=== PATIENT | male | born 1970 | race Two or more races ===

== ENCOUNTER 2018-05-24 07:13 | Day surgery (SDC) | payer OTHER ==
[2018-05-24] VITALS (9 sets, daily range): BP systolic 107–128; BP diastolic 56–88
[~2018-05-24] VITALS: Ht 180.3 cm; Wt 105.2 kg
[~2018-05-24 07:13] MED LIST: ceFAZolin 1gm IVPB IVPB ONE; celeBREX 200mg Cap **SURGERY PATIENTS ONLY ORAL ONE; oxyCONTIN 20mg tab ORAL ONE
--- NOTE | 2018-05-24 07:38 | Operative Note - PDOC ---
Operative Note Operative Note Pre-op Diagnosis: right knee internal derangemnt, meniscus tear Procedure: see op report Post-op Diagnosis: same as pre-op plus Operative Findings: consistent w/pre-op dx studies Anesthesia: MAC Specimen: none Complications: none Condition: stable Estimated Blood Loss: none Implant(s) used?: No Silvino Price MD May 24, 2018 07:38
--- NOTE | 2018-05-24 07:38 | Pre-Procedure Note/Attestation ---
Pre-Procedure Note/Attestation Complete Prior to Procedure Planned Procedure: right Procedure Narrative: knee arthroscopy, possible mensectomy Indications for Procedure Pre-Operative Diagnosis: right knee internal derangemnt, meniscus tear Attestation I attest that I discussed the nature of the procedure; its benefits; risks and complications; and alternatives (and the risks and benefits of such alternatives ), prior to the procedure, with the patient (or the patient's legal investment representative). I attest that, if there was a reasonable possibility of needing a blood transfusion, the patient (or the patient's legal investment representative) was given the [facility] standardized written summary, pursuant to the Alphonso Jordi Blood Safety Act ([place] Health and Safety Code # 1645, as amended). I attest that I re-evaluated the patient just prior to the surgery and that there has been no change in the patient's H&P, except as documented below: Silvino Price MD May 24, 2018 07:38
[2018-05-24] MEDS ORDERED: oxyCONTIN 20mg tab ORAL ONE (08:27)
[2018-05-24] MEDS ORDERED: celeBREX 200mg Cap **SURGERY PATIENTS ONLY ORAL ONE (08:27)
[2018-05-24] MEDS ORDERED: Lidocaine 1% MPF 10mg/ml 5ml ONE (09:10)
[2018-05-24] MEDS ORDERED: fentaNYL 100 mcg/2 mL IV ONE (09:10)
[2018-05-24] MEDS ORDERED: Midazolam 2mg/2ml Inj ONE (09:10)
[2018-05-24] MEDS ORDERED: Ketorolac 30mg Inj ONE ×2 (09:10→09:25)
[2018-05-24] MEDS ORDERED: Propofol 200mg/20ml IV ONE (09:10)
[2018-05-24] MEDS ORDERED: Morphine Sulfate PF 10 ML ONE (09:24)
[2018-05-24] MEDS ORDERED: EPINEPHrine 1mg/1ml Amp ONE (09:24)
[2018-05-24] MEDS ORDERED: Kenalog-40 1ml Vial ONE (09:25)
[2018-05-24] MEDS ORDERED: Lidocaine 1% 10mg/ml/Epi 0.005mg/ml 30ml vial INJ ONE (09:25)
[2018-05-24] MEDS ORDERED: Bupivacaine 0.25% Inj 30ml INJ ONE (09:25)
[2018-05-24] MEDS ORDERED: Duramorph PF 10mg/10ml amp EPIDUR ONE (09:44)
[2018-05-24] MEDS ORDERED: LR 1000ml ONE (09:45)
[2018-05-24] MEDS ORDERED: NS Irrig 4000ml IRRIG ONE (09:45)
[2018-05-24] MEDS ORDERED: Sterile Water Irrig 1000ml IRRIG ONE (09:45)
[2018-05-24] MEDS ORDERED: LR 1000ml 1,000 ML IVLG SCH (10:07)
--- NOTE | 2018-05-24 10:07 | Anethesia Preoperative Eval ---
Anesthesia Pre-op PMH/ROS General Date of Evaluation: May 24, 2018 Time of Evaluation: 09:42 Anesthesiologist: Fiorella ASA Score: ASA 2 Mallampati Score Class I : Soft palate, uvula, fauces, pillars visible Class II: Soft palate, uvula, fauces visible Class III: Soft palate, base of uvula visible Class IV: Only hard plate visible Mallampati Classification: Class III Surgeon: Albert Diagnosis: R knee pain Surgical Procedure: R knee scope Anesthesia History: none Family History: no anesthesia problems Allergies: Coded Allergies: No Known Allergies (Unverified , 05/23/18) Medications: see eMAR Patient NPO?: Yes Past Medical History Cardiovascular: Denies: HTN, CAD, [place], valve dz, arrhythmia, other Pulmonary: Denies: asthma, COPD, REJI, other Gastrointestinal/Genitourinary: Reports: GERD; Denies: CRI, ESRD, other Neurologic/Psychiatric: Denies: dementia, CVA, depression/anxiety, TIA, other Endocrine: Denies: DM, hypothyroidism, steroids, other HEENT: Denies: cataract (L), cataract (R), glaucoma, [place] (L), [place] (R), other Hematology/Immune: Denies: anemia, DVT, bleeding disorder, other Musculoskeletal/Integumentary: Denies: OA, RA, DJD, DDD, edema, other Other: obesity PMH Narrative: as above PSxH Narrative: Hernia repair Anesthesia Pre-op Phys. Exam Physician Exam Last Vital Signs Date Time Temp Pulse Resp B/P (MAP) Pulse Ox O2 Delivery O2 Flow Rate FiO2 05/24/18 08:21 Room Air 05/24/18 08:13 98.3 70 18 107/72 97 Constitutional: NAD Neurologic: CN 2-12 intact Cardiovascular: RRR, no M/R/G Respiratory: CTA Gastrointestinal: other - obesity Airway Exam Mallampati Score: Class III MO: limited Neck: short Teeth: intact Dentures: no upper, no lower Anesthesia Pre-op A/P Labs see chart Studies Pre-op Studies: EKG - SR Risk Assessment & Plan Assessment: ASA 2 Plan: GA with LMA Status Change Before Surgery: No Pre-Antibiotics Drug: Ancef 2gr Given Within 1 Hr of Incision: Yes Time Given: 10:07 Lacho Barros MD May 24, 2018 10:07
[2018-05-24] MEDS ORDERED: Ketorolac 30mg Inj IV PRN (10:15)
[2018-05-24] MEDS ORDERED: Meperidine 50mg/ml Inj(FOR RIGORS ONLY) IV PRN (10:15)
[2018-05-24] MEDS ORDERED: DiphenhydrAMINE 50mg/ml Inj IVP PRN (10:15)
--- NOTE | 2018-05-24 10:44 | Immediate Post-Op Evaluation ---
Immediate Post-Op Evalulation Immediate Post-Op Evalulation Procedure: R knee arthroscopy meniscectomy Date of Evaluation: May 24, 2018 Time of Evaluation: 10:42 IV Fluids: 700 Blood Products: none Estimated Blood Loss: min Urinary Output: none Blood Pressure Systolic: 124 Blood Pressure Diastolic: 75 Pulse Rate: 65 Respiratory Rate: 20 O2 Sat by Pulse Oximetry: 98 Temperature (Fahrenheit): 97.6 Pain Score (1-10): 1 Nausea: No Vomiting: No Complications none Patient Status: reacts, patent, none Hydration Status: adequate Lacho Barros MD May 24, 2018 10:44
[2018-05-24] MEDS ORDERED: Tylenol #3 tab (300mg/30mg) ORAL PRN (16:01)
[2018-05-24] MEDS ORDERED: D5 1/2NS 1,000 ML IV SCH (16:01)
[2018-05-24] MEDS ORDERED: Norco 5mg/325mg tab ORAL PRN (16:01)
[2018-05-24] MEDS ORDERED: HYDROmorphone 1mg/ml Carpuject SUBQ PRN (16:01)
--- NOTE | 2018-05-24 16:36 | 48 Hour Post Anesthesia Eval ---
Post Anesthesia Evaluation Procedure: R knee arthroscopy meniscectomy Date of Evaluation: May 24, 2018 Time of Evaluation: 11:40 Blood Pressure Systolic: 115 0: 72 Pulse Rate: 64 Respiratory Rate: 20 Temperature (Fahrenheit): 97.6 O2 Sat by Pulse Oximetry: 98 Airway: patent Nausea: No Vomiting: No Pain Intensity: 1 Hydration Status: adequate Cardiopulmonary Status: stable Mental Status/LOC: patient returned to baseline Follow-up Care/Observations: n/a Post-Anesthesia Complications: none Follow-up care needed: ready to discharge Lacho Barros MD May 24, 2018 16:36
[2018-05-24] MEDS ORDERED: NKM (18:00)
--- NOTE | 2018-05-24 23:15 | Operative Note - Dictated ---
DATE OF OPERATION: 05/24/2018 PREOPERATIVE DIAGNOSES: 1. Right knee medial meniscus tear. 2. Right knee medial collateral ligament sprain. 3. Right knee chondral damage. POSTOPERATIVE DIAGNOSES: 1. Grade 2 femoral condyle, chondral damage. 2. Hypertrophic synovial tissue, medial and lateral patellofemoral compartment. 3. MCL sprain. PROCEDURES: 1. Right knee arthroscopy. 2. Gentle chondroplasty of chondral flap, medial femoral condyle. 3. Excision from fat pad, medial, lateral and patellofemoral compartment. SURGEON: Silvino Price M.D. ANESTHESIA: MAC. INDICATION FOR PROCEDURE: The patient is a pleasant gentleman who has had a significant injury to his knee, had a continued pain. He failed conservative treatment. An MRI, which showed concern for possible meniscal tear and chondral damage. Risks, limitations, expectations, and complications of the procedure were discussed in detail. All questions addressed. DESCRIPTION OF PROCEDURE: After informed consent was obtained, the patient was brought to the operating room. The patient was placed under monitored anesthesia control. Tourniquet was applied to right proximal thigh. Right leg was prepped and draped in a sterile manner. Time-out was performed. Ancef was administered. An inferolateral stab incision was then made. Trocar was introduced into the patellofemoral compartment. There was significant synovial tissue, hypertrophic fat pad, making visualization of patella compartment difficult. The knee was flexed and the medial compartment was entered. There was hypertrophic fat pad and synovial tissue, making visualization of medial compartment difficulty. Therefore, medial working portal was established. Synovectomy of the fat pad and synovial tissue was performed in the medial compartment, intercondylar notch, and lateral compartment compartments of the knee. Medial compartment was entered. The posterior horn of medial meniscus was probed, noted to be intact. There was a chondral flap in the posterior medial femoral condyle, which was supposed to. Gentle chondroplasty of this area was performed to prevent further propagation of the chondral damage. The ACL was probed and noted to be intact. Lateral compartment was entered, free of any meniscal chondral damage. The camera was repositioned in the patellofemoral compartment and excision of the fat pad and synovial tissue was completed, this allowed better visualization of patellofemoral compartment, which showed no evidence of chondral damage to patellofemoral compartment. At this point, the instruments were removed. Portal sites were closed using Monocryl and compression dressing was applied. The patient was awoken and taken to recovery room with stable vital signs. ESTIMATED BLOOD LOSS: None. COMPLICATIONS: None. SPECIMENS: None. IMPLANTS: None. Silvino Price M.D. DR: CLEMENTE JOB#: [id number] CC: ADDIE
== END 2018-05-24 12:20 | disposition home or self-care (01) ==
LOC: SUR 07:13
DX: M94.8X6 Other specified disorders of cartilage, lower leg (principal); M67.261 Synovial hypertrophy, not elsewhere classified, right lower leg; S83.411A Sprain of medial collateral ligament of right knee, initial encounter; K21.9 Gastro-esophageal reflux disease without esophagitis; E66.9 Obesity, unspecified
CPT/HCPCS: 29876; J0171; J0690; J1885; J2250; J2274; J2704; J3010; J3301; J3490; 94003; 94150

== ENCOUNTER 2018-07-12 09:15 | Day surgery (SDC) | payer OTHER ==
[~2018-07-12] VITALS: Ht 180.3 cm; Wt 99.8 kg
--- NOTE | 2018-07-12 07:36 | Pre-Procedure Note/Attestation ---
Pre-Procedure Note/Attestation Complete Prior to Procedure Planned Procedure: right Procedure Narrative: shoulder arthroscopy, sad Indications for Procedure Pre-Operative Diagnosis: right shoulder internal derangement Attestation I attest that I discussed the nature of the procedure; its benefits; risks and complications; and alternatives (and the risks and benefits of such alternatives ), prior to the procedure, with the patient (or the patient's legal desk representative). I attest that, if there was a reasonable possibility of needing a blood transfusion, the patient (or the patient's legal desk representative) was given the [facility] standardized written summary, pursuant to the Alphonso Cutter Blood Safety Act ([place] Health and Safety Code # 1645, as amended). I attest that I re-evaluated the patient just prior to the surgery and that there has been no change in the patient's H&P, except as documented below: Silvino Price MD Jul 12, 2018 07:35
--- NOTE | 2018-07-12 07:36 | Operative Note - PDOC ---
Operative Note Operative Note Pre-op Diagnosis: right shoulder internal derangement Procedure: see op report Post-op Diagnosis: same as pre-op plus Operative Findings: consistent w/pre-op dx studies Anesthesia: regional Specimen: none Complications: none Condition: stable Estimated Blood Loss: none Implant(s) used?: No Silvino Price MD Jul 12, 2018 07:36
[~2018-07-12 09:15] MED LIST changes: +D5 1/2NS 1,000 ML IV SCH; +HYDROcodone/Acetamin 5/325 tab ORAL PRN; +HYDROmorphone 1mg/ml Carpuject SUBQ PRN; +NKM; +Tylenol #3 tab (300mg/30mg) ORAL PRN
--- NOTE | 2018-07-12 09:33 | Anethesia Preoperative Eval ---
Anesthesia Pre-op PMH/ROS General Date of Evaluation: Jul 12, 2018 Anesthesiologist: Austin ASA Score: ASA 1 Mallampati Score Class I : Soft palate, uvula, fauces, pillars visible Class II: Soft palate, uvula, fauces visible Class III: Soft palate, base of uvula visible Class IV: Only hard plate visible Mallampati Classification: Class III Surgeon: Albert Diagnosis: Right shoulder derangement Surgical Procedure: Right shoulder arthroscopy with subacromial decompression Anesthesia History: none Family History: no anesthesia problems Allergies: Coded Allergies: No Known Allergies (Unverified , 05/23/18) Medications: see eMAR Patient NPO?: Yes NPO Date: Jul 11, 2018 NPO Time: 22:00 Past Medical History Cardiovascular: Denies: HTN, CAD, [place], valve dz, arrhythmia, other Pulmonary: Denies: asthma, COPD, REJI, other Gastrointestinal/Genitourinary: Denies: GERD, CRI, ESRD, other Neurologic/Psychiatric: Denies: dementia, CVA, depression/anxiety, TIA, other Endocrine: Denies: DM, hypothyroidism, steroids, other HEENT: Denies: cataract (L), cataract (R), glaucoma, [place] (L), [place] (R), other Hematology/Immune: Denies: anemia, DVT, bleeding disorder, other Musculoskeletal/Integumentary: Denies: OA, RA, DJD, DDD, edema, other PSxH Narrative: bilateral inguinal hernia repairs Anesthesia Pre-op Phys. Exam Physician Exam see chart Constitutional: NAD Cardiovascular: RRR Respiratory: CTA Airway Exam Mallampati Score: Class III MO: full ROM: full Anesthesia Pre-op A/P Labs see chart Studies Pre-op Studies: EKG - sr Risk Assessment & Plan Assessment: ASA I Plan: GA with right interscalene nerve block Status Change Before Surgery: No Pre-Antibiotics Drug: Phoebe Woodruff MD Jul 12, 2018 09:33
[2018-07-12] MEDS ORDERED: LR 1000ml 1,000 ML IVLG SCH (09:36)
[2018-07-12 09:40] VITALS: BP 131/88
[2018-07-12] MEDS ORDERED: Lidocaine 1% MPF 10mg/ml 5ml ONE (09:41)
[2018-07-12] MEDS ORDERED: Propofol 200mg/20ml IV ONE (09:41)
[2018-07-12] MEDS ORDERED: fentaNYL 100 mcg/2 mL IV ONE (09:41)
[2018-07-12] MEDS ORDERED: Ropivacaine 5mg/ml Vial 30ml INJ ONE (09:43)
[2018-07-12] MEDS ORDERED: LORazepam Inj 2mg/ml 1ml IV PRN (09:45)
[2018-07-12] MEDS ORDERED: Hydromorphone 0.5mg/0.5ml inj IVP PRN (09:45)
[2018-07-12] MEDS ORDERED: Metoclopramide 10mg/2ml Inj IVP PRN (09:45)
[2018-07-12] MEDS ORDERED: fentaNYL 100 mcg/2 mL IV PRN (09:45)
[2018-07-12] MEDS ORDERED: Midazolam 2mg/2ml Inj IVP PRN (09:45)
[2018-07-12] MEDS ORDERED: DiphenhydrAMINE 50mg/ml Inj IVP PRN (09:45)
[2018-07-12] MEDS ORDERED: Ketorolac 30mg Inj IV PRN (09:45)
[2018-07-12] MEDS ORDERED: TRAMADOL HCL50 MG ORAL (09:56)
[2018-07-12] MEDS ORDERED: celeBREX 200mg Cap **SURGERY PATIENTS ONLY ORAL ONE (09:59)
[2018-07-12] MEDS ORDERED: oxyCONTIN 20mg tab ORAL ONE (09:59)
[2018-07-12] MEDS ORDERED: EPINEPHrine 1mg/1ml Amp ONE (10:14)
[2018-07-12] MEDS ORDERED: Duramorph PF 5mg/10ml amp ONE (10:14)
[2018-07-12] MEDS ORDERED: Bupivacaine 0.25% Inj 30ml INJ ONE (10:14)
[2018-07-12] MEDS ORDERED: Ketorolac 30mg Inj ONE ×2 (10:14→11:28)
[2018-07-12] MEDS ORDERED: Kenalog-40 1ml Vial ONE (10:14)
[2018-07-12] MEDS ORDERED: Bupivacaine w/Epi 0.25% 30ml Vial INJ ONE (10:14)
[2018-07-12] MEDS ORDERED: LR 1000ml ONE (11:00)
[2018-07-12] MEDS ORDERED: Dexamethasone 4mg/ml vial ONE (11:28)
[2018-07-12] MEDS ORDERED: NS Irrig 4000ml IRRIG ONE (11:39)
[2018-07-12] MEDS ORDERED: Duramorph PF 5mg/10ml amp IV ONE (12:10)
[2018-07-12 12:23] VITALS: BP 120/71
--- NOTE | 2018-07-12 12:27 | Immediate Post-Op Evaluation ---
Immediate Post-Op Evalulation Immediate Post-Op Evalulation Procedure: Right shoulder arthroscopy with subacromial decompression Date of Evaluation: Jul 12, 2018 Time of Evaluation: 12:28 IV Fluids: 700 Blood Products: 0 Estimated Blood Loss: min Urinary Output: 0 Blood Pressure Systolic: 120 Blood Pressure Diastolic: 79 Pulse Rate: 85 Respiratory Rate: 16 O2 Sat by Pulse Oximetry: 99 Temperature (Fahrenheit): 97.6 Pain Score (1-10): 0 Nausea: No Vomiting: No Complications 0 Patient Status: awake, reacts, patent, none Hydration Status: adequate Drug: Ancef 2g Given Within 1 Hr of Incision: Yes Phoebe Woodruff MD Jul 12, 2018 12:27
[2018-07-12 12:28] VITALS: BP 119/75
--- NOTE | 2018-07-12 12:28 | 48 Hour Post Anesthesia Eval ---
Post Anesthesia Evaluation Procedure: Right shoulder arthroscopy with subacromial decompression Date of Evaluation: Jul 12, 2018 Airway: patent Nausea: No Vomiting: No Pain Intensity: 0 Hydration Status: adequate Cardiopulmonary Status: at baseline Mental Status/LOC: patient returned to baseline Post-Anesthesia Complications: 0 Follow-up care needed: ready to discharge Phoebe Woodruff MD Jul 12, 2018 12:28
[2018-07-12 12:32] VITALS: BP 121/74
[2018-07-12 12:44] VITALS: BP 133/89
[2018-07-12 13:01] VITALS: BP 140/90
--- NOTE | 2018-07-13 00:30 | Operative Note - Dictated ---
DATE OF OPERATION: 07/12/2018 POSTOPERATIVE DIAGNOSIS: Traumatic bursitis/tendinitis to right shoulder. POSTOPERATIVE DIAGNOSES: 1. Right shoulder traumatic bursitis and tendinitis. 2. Right shoulder partial bursal-sided rotator cuff tear. PROCEDURES: 1. Right shoulder arthroscopy. 2. Right shoulder subacromial decompression bursectomy with release of CA ligament. 3. Debridement of bursal-sided partial rotator cuff tear. SURGEON: Silvino Price M.D. ANESTHESIA: Interscalene with general. INDICATION FOR PROCEDURE: The patient is a 48-year-old gentleman with right shoulder pain. No significant evidence of impingement, failed conservative treatment and elected to undergo right shoulder arthroscopy, some decompression bursectomy. Risks, limitations, expectations, and complications of the procedure were discussed in detail. All questions addressed. DESCRIPTION OF PROCEDURE: After informed consent was obtained, the patient was brought to the operative room. The patient was placed under interscalene general anesthesia. The patient was then carefully placed in beach-chair position. Right shoulder was prepped and draped in a sterile manner. A 2 g Ancef was administered. Right shoulder posterolateral stab incision was then made. Trocar was introduced into the glenohumeral joint. There was chondral damage. Anterior labrum appeared to be intact along with the superior labrum. Subscap was intact along the long head of the biceps. There was some fraying of the rotator cuff, grossly intact. Camera was placed in subacromial space. Complete bursectomy and release of CA ligament was performed anterior and lateral aspect of the acromion. Acromioplasty was started from lateral to medial, completed from posterior to anterior. Once that was done, the bursectomy was completed. At this point, the instruments were removed. Portal sites were closed with 3-0 Monocryl sutures. Steri-Strips and a sterile dressing were applied. The patient was awoken and taken to recovery room with stable vital signs. ESTIMATED BLOOD LOSS: None. COMPLICATIONS: None. SPECIMENS: None. Silvino Price M.D. DR: CLEMENTE JOB#: [id number] CC: ADDIE
== END 2018-07-12 14:00 | disposition home or self-care (01) ==
LOC: SUR 09:15
DX: M71.9 Bursopathy, unspecified (principal); M77.9 Enthesopathy, unspecified; M75.111 Incomplete rotator cuff tear or rupture of right shoulder, not specified as traumatic
CPT/HCPCS: 29822; J0171; J0690; J1100; J1170; J1885; J2250; J2405; J2704; J2795; J3010; J3301; 94003; 94150

== ENCOUNTER 2018-11-22 13:17 | Day surgery (SDC) | payer OTHER ==
[~2018-11-22] VITALS: Ht 180.3 cm; Wt 106.6 kg
[2018-11-22] VITALS (8 sets, daily range): BP systolic 120–136; BP diastolic 68–87
[~2018-11-22 13:17] MED LIST changes: -D5 1/2NS 1,000 ML IV SCH; -HYDROcodone/Acetamin 5/325 tab ORAL PRN; -HYDROmorphone 1mg/ml Carpuject SUBQ PRN; +TRAMADOL HCL50 MG ORAL; -Tylenol #3 tab (300mg/30mg) ORAL PRN
[2018-11-22] MEDS ORDERED: NKM (13:52)
[2018-11-22] MEDS ORDERED: celeBREX 200mg Cap **SURGERY PATIENTS ONLY ORAL ONE (13:53)
[2018-11-22] MEDS ORDERED: oxyCONTIN 20mg tab ORAL ONE (13:53)
--- NOTE | 2018-11-22 14:00 | Anethesia Preoperative Eval ---
Phoebe Woodruff MD 11/22/18 1400: Anesthesia Pre-op PMH/ROS General Date of Evaluation: Nov 22, 2018 Anesthesiologist: Austin ASA Score: ASA 2 Mallampati Score Class I : Soft palate, uvula, fauces, pillars visible Class II: Soft palate, uvula, fauces visible Class III: Soft palate, base of uvula visible Class IV: Only hard plate visible Mallampati Classification: Class III Surgeon: Albert Diagnosis: Left shoulder internal derangement Surgical Procedure: Left shoulder arthroscopy Anesthesia History: none Family History: no anesthesia problems Allergies: Coded Allergies: No Known Allergies (Unverified , 05/23/18) Medications: see eMAR Patient NPO?: Yes NPO Date: Nov 21, 2018 NPO Time: 22:00 Past Medical History Cardiovascular: Denies: HTN, CAD, CT, valve dz, arrhythmia, other Pulmonary: Denies: asthma, COPD, REJI, other Gastrointestinal/Genitourinary: Denies: GERD, CRI, ESRD, other Neurologic/Psychiatric: Denies: dementia, CVA, depression/anxiety, TIA, other Endocrine: Denies: DM, hypothyroidism, steroids, other HEENT: Denies: cataract (L), cataract (R), glaucoma, [place] (L), [place] (R), other Hematology/Immune: Denies: anemia, DVT, bleeding disorder, other Musculoskeletal/Integumentary: Denies: OA, RA, DJD, DDD, edema, other PSxH Narrative: right inguinal hernia repair, left ihr, riht knee arthroscopy Anesthesia Pre-op Phys. Exam Physician Exam Last Vital Signs Date Time Temp Pulse Resp B/P (MAP) Pulse Ox O2 Delivery O2 Flow Rate FiO2 11/22/18 13:42 97.4 69 18 133/79 98 Room Air Constitutional: NAD Cardiovascular: RRR Respiratory: CTA Airway Exam Mallampati Score: Class III MO: limited ROM: limited Teeth: intact Anesthesia Pre-op A/P Labs see chart Studies Pre-op Studies: EKG - sr Risk Assessment & Plan Assessment: ASA II Plan: GA with interscalene nerve block Status Change Before Surgery: No Pre-Antibiotics Drug: Ancef 2g Given Within 1 Hr of Incision: Yes Shen Franklin MD 11/22/18 1459: Anesthesia Pre-op PMH/ROS General Allergies: Coded Allergies: No Known Allergies (Unverified , 05/23/18) Phoebe Woodruff MD Nov 22, 2018 14:00 Shen Franklin MD Nov 22, 2018 14:59
[2018-11-22] MEDS ORDERED: Propofol 200mg/20ml IV ONE (14:01)
[2018-11-22] MEDS ORDERED: Lidocaine 1% MPF 10mg/ml 5ml ONE (14:01)
[2018-11-22] MEDS ORDERED: Midazolam 2mg/2ml Inj ONE ×2 (14:01→14:25)
[2018-11-22] MEDS ORDERED: fentaNYL 100 mcg/2 mL IV ONE (14:01)
[2018-11-22] MEDS ORDERED: Kenalog-40 1ml Vial ONE (14:03)
--- NOTE | 2018-11-22 14:03 | Operative Note - PDOC ---
Operative Note Operative Note Pre-op Diagnosis: left shoulder impingement Procedure: see op report Post-op Diagnosis: same as pre-op plus Operative Findings: consistent w/pre-op dx studies Anesthesia: regional Specimen: none Complications: none Condition: stable Estimated Blood Loss: none Implant(s) used?: No Silvino Price MD Nov 22, 2018 14:03
--- NOTE | 2018-11-22 14:03 | Pre-Procedure Note/Attestation ---
Pre-Procedure Note/Attestation Complete Prior to Procedure Planned Procedure: left Procedure Narrative: shoulder arthroscopy, sad Indications for Procedure Pre-Operative Diagnosis: left shoulder impingement Attestation I attest that I discussed the nature of the procedure; its benefits; risks and complications; and alternatives (and the risks and benefits of such alternatives ), prior to the procedure, with the patient (or the patient's legal motor vehicle representative). I attest that, if there was a reasonable possibility of needing a blood transfusion, the patient (or the patient's legal motor vehicle representative) was given the [facility] standardized written summary, pursuant to the Alphonso Jordi Blood Safety Act ([place] Health and Safety Code # 1645, as amended). I attest that I re-evaluated the patient just prior to the surgery and that there has been no change in the patient's H&P, except as documented below: Silvino Price MD Nov 22, 2018 14:03
[2018-11-22] MEDS ORDERED: EPINEPHrine 1mg/1ml Amp ONE ×2 (14:04→14:24)
[2018-11-22] MEDS ORDERED: Duramorph PF 5mg/10ml amp ONE (14:04)
[2018-11-22] MEDS ORDERED: Ketorolac 30mg Inj ONE (14:04)
[2018-11-22] MEDS ORDERED: HYDROcodone/Acetamin 5/325 tab ORAL PRN (14:15)
[2018-11-22] MEDS ORDERED: Tylenol #3 tab (300mg/30mg) ORAL PRN (14:15)
[2018-11-22] MEDS ORDERED: HYDROmorphone 1mg/ml Carpuject SUBQ PRN (14:15)
[2018-11-22] MEDS ORDERED: D5 1/2NS 1,000 ML IV SCH (14:15)
[2018-11-22] MEDS ORDERED: Dexamethasone 4mg/ml vial ONE (14:24)
[2018-11-22] MEDS ORDERED: Ropivacaine 5mg/ml Vial 30ml INJ ONE (14:24)
[2018-11-22] MEDS ORDERED: Sterile Water Irrig 1000ml IRRIG ONE (14:30)
[2018-11-22] MEDS ORDERED: LR 1000ml ONE (14:30)
[2018-11-22] MEDS ORDERED: Duramorph PF 5mg/10ml amp IT ONE ×4 (14:44→16:16)
[2018-11-22] MEDS ORDERED: NS Irrig 4000ml IRRIG ONE ×4 (14:44→16:17)
--- NOTE | 2018-11-22 15:00 | Immediate Post-Op Evaluation ---
Immediate Post-Op Evalulation Immediate Post-Op Evalulation Procedure: L Shoulder Arthroscopy Date of Evaluation: Nov 22, 2018 Time of Evaluation: 15:49 IV Fluids: 700 LR Blood Products: 0 Estimated Blood Loss: 4 Urinary Output: 0 Blood Pressure Systolic: 120 Blood Pressure Diastolic: 76 Pulse Rate: 76 Respiratory Rate: 16 O2 Sat by Pulse Oximetry: 99 Temperature (Fahrenheit): 97.4 Pain Score (1-10): 1 Nausea: No Vomiting: No Complications 0 Patient Status: awake, reacts, patent, none Hydration Status: adequate Dru Grams Ancef IV Given Within 1 Hr of Incision: Yes Time Given: 14:42 Shen Franklin MD Nov 22, 2018 15:00
--- NOTE | 2018-11-22 15:01 | 48 Hour Post Anesthesia Eval ---
Post Anesthesia Evaluation Procedure: L Shoulder Arthroscopy Date of Evaluation: Nov 22, 2018 Time of Evaluation: 18:12 Blood Pressure Systolic: 128 0: 81 Pulse Rate: 78 Respiratory Rate: 18 Temperature (Fahrenheit): 98.2 O2 Sat by Pulse Oximetry: 99 Airway: patent Nausea: No Vomiting: No Pain Intensity: 1 Hydration Status: adequate Cardiopulmonary Status: Stable Mental Status/LOC: patient returned to baseline Follow-up Care/Observations: 0 Post-Anesthesia Complications: 0 Follow-up care needed: ready to discharge Shen Franklin MD Nov 22, 2018 15:01
--- NOTE | 2018-11-22 17:30 | Operative Note - Dictated ---
DATE OF OPERATION: 11/22/2018 PREOPERATIVE DIAGNOSES: 1. Right shoulder impingement syndrome. 2. Right shoulder rotator cuff tendinosis. POSTOPERATIVE DIAGNOSES: 1. Right shoulder impingement syndrome. 2. Right shoulder rotator cuff tendinosis. PROCEDURES: 1. Right shoulder diagnostic arthroscopy. 2. Right shoulder subacromial decompression, bursectomy, acromioplasty. SURGEON: Silvino Price M.D. ANESTHESIA: Interscalene with general. INDICATION FOR PROCEDURE: The patient is a pleasant gentleman, who has had progressive left shoulder pain after an accident. He failed conservative treatment. Elected to undergo left shoulder arthroscopy, subacromial decompression, bursectomy. Risks, limitations, expectations, complications of procedure were discussed in detail. All questions addressed. DESCRIPTION OF PROCEDURE: After informed consent obtained, the patient was brought to the operating room. The patient was placed under interscalene general anesthesia. Left shoulder was prepped and draped in a sterile manner. Time-out was performed. Inferolateral stab incision was then made. Trocar introduced into the shoulder joint. There was no chondral damage. The glenoid, humeral head, and the anterior labrum was intact along with the subscap. The superior labrum was intact along the biceps tendon. The articular side of the rotator cuff was intact. The camera was then placed in the subacromial space. There was hypertrophic bursal tissue, which was debrided to better visualize the anterolateral subacromion. He had a pretty sizable acromial spur, which was decompressed from lateral to medial and then from posterior to anterior. Bursectomy was completed going to the posterior aspect of the subacromial space. Instruments were removed. Portal sites were closed with 3-0 Monocryl sutures. COMPLICATIONS: None. SPECIMENS: None. IMPLANTS: None. Silvino Price M.D. DR: DELISA JOB#: [id number] CC:
== END 2018-11-22 16:55 | disposition home or self-care (01) ==
LOC: SUR 13:17
DX: M75.41 Impingement syndrome of right shoulder (principal); M77.9 Enthesopathy, unspecified
CPT/HCPCS: 29822; J0171; J0690; J1100; J1885; J2250; J2704; J2795; J3010; J3301; 94003; 94150

== ENCOUNTER 2019-01-10 07:19 | Day surgery (SDC) | payer OTHER ==
[2019-01-10] VITALS (12 sets, daily range): BP systolic 117–144; BP diastolic 67–93
[~2019-01-10] VITALS: Ht 180.3 cm; Wt 108.9 kg
--- NOTE | 2019-01-10 07:37 | Pre-Procedure Note/Attestation ---
Pre-Procedure Note/Attestation Complete Prior to Procedure Planned Procedure: left Procedure Narrative: knee diagnosctic arthroscopy, possible mensectomy, synovectomy, chondroplassty Indications for Procedure Pre-Operative Diagnosis: left knee internal deragment Attestation I attest that I discussed the nature of the procedure; its benefits; risks and complications; and alternatives (and the risks and benefits of such alternatives ), prior to the procedure, with the patient (or the patient's legal dental sales representative). I attest that, if there was a reasonable possibility of needing a blood transfusion, the patient (or the patient's legal dental sales representative) was given the [facility] standardized written summary, pursuant to the Alphonso Jordi Blood Safety Act ([place] Health and Safety Code # 1645, as amended). I attest that I re-evaluated the patient just prior to the surgery and that there has been no change in the patient's H&P, except as documented below: Silvino Price MD Jan 10, 2019 07:37
--- NOTE | 2019-01-10 07:37 | Operative Note - PDOC ---
Operative Note Operative Note Pre-op Diagnosis: left knee internal deragment Procedure: see op report Post-op Diagnosis: same as pre-op plus Operative Findings: consistent w/pre-op dx studies Anesthesia: MAC Specimen: none Complications: none Condition: stable Estimated Blood Loss: none Implant(s) used?: No Silvino Price MD Jan 10, 2019 07:37
[2019-01-10] MEDS ORDERED: HYDROcodone/Acetamin 5/325 tab ORAL PRN (07:45)
[2019-01-10] MEDS ORDERED: Tylenol #3 tab (300mg/30mg) ORAL PRN (07:45)
[2019-01-10] MEDS ORDERED: D5 1/2NS 1,000 ML IV SCH (07:45)
[2019-01-10] MEDS ORDERED: HYDROmorphone 1mg/ml Carpuject SUBQ PRN (07:45)
[2019-01-10] MEDS ORDERED: oxyCONTIN 20mg tab ORAL ONE (08:13)
[2019-01-10] MEDS ORDERED: celeBREX 200mg Cap **SURGERY PATIENTS ONLY ORAL ONE (08:13)
[2019-01-10] MEDS ORDERED: fentaNYL 100 mcg/2 mL ONE (10:25)
[2019-01-10] MEDS ORDERED: Midazolam 2mg/2ml Inj ONE (10:25)
[2019-01-10] MEDS ORDERED: Sterile Water Irrig 1000ml IRRIG ONE (10:30)
[2019-01-10] MEDS ORDERED: LR 1000ml ONE (10:30)
[2019-01-10] MEDS ORDERED: Kenalog-40 1ml Vial IARTIC ONE (10:38)
[2019-01-10] MEDS ORDERED: Bupivacaine 0.25% Inj 30ml INJ ONE (10:38)
[2019-01-10] MEDS ORDERED: Ketorolac 30mg Inj IM ONE (10:38)
[2019-01-10] MEDS ORDERED: NS Irrig 2000ml IRRIG ONE (10:38)
[2019-01-10] MEDS ORDERED: Lidocaine 1% 10mg/ml/EPI 0.01mg/ml 20ml INJ ONE (10:38)
[2019-01-10] MEDS ORDERED: Duramorph PF 5mg/10ml amp IT ONE (10:38)
[2019-01-10] MEDS ORDERED: Propofol 200mg/20ml IV ONE (10:54)
[2019-01-10] MEDS ORDERED: Lidocaine 1% MPF 10mg/ml 5ml ONE (10:54)
[2019-01-10] MEDS ORDERED: ePHEDrine 50mg/ml Inj ONE (10:56)
--- NOTE | 2019-01-10 11:11 | Anethesia Preoperative Eval ---
Anesthesia Pre-op PMH/ROS General Date of Evaluation: Jan 10, 2019 Time of Evaluation: 10:20 Anesthesiologist: francisco ASA Score: ASA 2 Mallampati Score Class I : Soft palate, uvula, fauces, pillars visible Class II: Soft palate, uvula, fauces visible Class III: Soft palate, base of uvula visible Class IV: Only hard plate visible Mallampati Classification: Class III Surgeon: mirian Diagnosis: knee pain Surgical Procedure: left knee scope Anesthesia History: none Family History: no anesthesia problems Allergies: Coded Allergies: No Known Allergies (Unverified , 05/23/18) Medications: see eMAR Patient NPO?: Yes NPO Date: Jan 10, 2019 NPO Time: 00:01 Past Medical History Cardiovascular: Denies: HTN, CAD, OR, valve dz, arrhythmia, other Pulmonary: Denies: asthma, COPD, REJI, other Gastrointestinal/Genitourinary: Reports: GERD; Denies: CRI, ESRD, other Neurologic/Psychiatric: Denies: dementia, CVA, depression/anxiety, TIA, other Endocrine: Denies: DM, hypothyroidism, steroids, other HEENT: Denies: cataract (L), cataract (R), glaucoma, YUHAAVIATAM (L), YUHAAVIATAM (R), other Hematology/Immune: Denies: anemia, DVT, bleeding disorder, other PSxH Narrative: knee and shoulder surgeries Anesthesia Pre-op Phys. Exam Physician Exam Last Vital Signs Date Time Temp Pulse Resp B/P (MAP) Pulse Ox O2 Delivery O2 Flow Rate FiO2 01/10/19 08:02 Room Air 01/10/19 08:00 97.7 70 18 124/76 96 Constitutional: NAD Neurologic: CN 2-12 intact Cardiovascular: RRR Respiratory: CTA Gastrointestinal: S/NT/ND Airway Exam Mallampati Classification 3 Mallampati Score: Class III MO: full ROM: full Dentures: no upper, no lower Anesthesia Pre-op A/P Studies Pre-op Studies: EKG - sr Risk Assessment & Plan Plan: general Pre-Antibiotics Drug: ancef Given Within 1 Hr of Incision: Yes Time Given: 10:30 Bonnie Cunha CRNA Jan 10, 2019 11:11
--- NOTE | 2019-01-10 11:13 | Immediate Post-Op Evaluation ---
Immediate Post-Op Evalulation Immediate Post-Op Evalulation Procedure: left knee scope Date of Evaluation: Jan 10, 2019 Time of Evaluation: 11:12 IV Fluids: 500 Blood Pressure Systolic: 142 Blood Pressure Diastolic: 86 Pulse Rate: 80 Respiratory Rate: 14 O2 Sat by Pulse Oximetry: 100 Temperature (Fahrenheit): 97.4 Nausea: No Vomiting: No Complications none Patient Status: awake, reacts, patent Hydration Status: adequate Drug: ancef Given Within 1 Hr of Incision: Yes Time Given: 10:30 Bonnie Cunha CRNA Jan 10, 2019 11:12
--- NOTE | 2019-01-10 13:54 | 48 Hour Post Anesthesia Eval ---
Post Anesthesia Evaluation Procedure: left knee scope Date of Evaluation: Jan 10, 2019 Time of Evaluation: 13:53 Blood Pressure Systolic: 126 0: 67 Pulse Rate: 70 Respiratory Rate: 14 O2 Sat by Pulse Oximetry: 97 Airway: patent Nausea: No Vomiting: No Hydration Status: adequate Cardiopulmonary Status: stable Mental Status/LOC: patient returned to baseline Post-Anesthesia Complications: none Follow-up care needed: N/A Bonnie Cunha CRNA Jan 10, 2019 13:54
--- NOTE | 2019-01-10 20:00 | Operative Note - Dictated ---
DATE OF OPERATION: 01/10/2019 PREOPERATIVE DIAGNOSIS: Left knee medial meniscus tear. POSTOPERATIVE DIAGNOSES: 1. Left knee intrameniscal degeneration of the posterior horn of the medial meniscus. 2. Hypertrophic synovial tissue medial and unilateral patellofemoral compartment. PROCEDURES: 1. Left knee diagnostic arthroscopy. 2. Left knee medial, lateral, and patellofemoral synovectomy and incision of a fat pad. SURGEON: Silvino Price M.D. ANESTHESIA: General. INDICATION FOR PROCEDURE: The patient is a pleasant gentleman, who has had a significant injury to his left knee. He failed conservative treatment and elected to undergo diagnostic arthroscopy, possible meniscectomy, and synovectomy. Risks, limitations, expectations, and complications of the procedure were discussed in detail. All questions were addressed. DESCRIPTION OF PROCEDURE: After informed consent was obtained, the patient was brought to the operating room and placed under general anesthesia. The left leg was prepped and draped in a sterile manner. Time-out was performed. Inferolateral stab incision was then made. Trocar was introduced into the knee joint. There is hypertrophic synovial tissue of the fat pad of the patellar compartment making visualization somewhat difficult. Medial gutter was entered and free of any loose bodies. Medial compartment was entered. Medial working portal was established. Synovectomy and excision of fat pad of the interior portal of the medial compartment, intercondylar notch, and lateral compartment was performed. The medial compartment was entered. Attention was turned to the meniscus. The area was reprobed and noted to be grossly intact consistent with intrameniscal degeneration of the meniscus. The ACL was probed and noted to be intact. Lateral compartment was entered. It was free from the meniscal chondral damage. The camera was placed in the patellofemoral compartment. Incision of the fat pad and synovectomy was completed. Once that was done, the instruments were removed. Portal sites were closed with 3-0 Monocryl sutures. Steri-Strips and a sterile dressing were applied. The patient was awoken and taken to recovery room with stable vital signs. ESTIMATED BLOOD LOSS: None. COMPLICATIONS: None. SPECIMENS: None. IMPLANTS: None. Silvino Price M.D. DR: CYNTHIA JOB#: [id number] CC:
== END 2019-01-10 12:25 | disposition home or self-care (01) ==
LOC: SUR 07:19
DX: M67.262 Synovial hypertrophy, not elsewhere classified, left lower leg (principal); K21.9 Gastro-esophageal reflux disease without esophagitis
CPT/HCPCS: 29876; J0690; J1885; J2250; J2405; J2704; J3010; J3301; J3490; 94003; 94150